=== PATIENT | male | born 1985 | race Caucasian/White ===

== ENCOUNTER 2017-06-25 15:05 | Emergency (ER) | payer OTHER ==
[~2017-06-25] VITALS: Ht 175.3 cm; Wt 113.6 kg
[~2017-06-25 15:05] MED LIST: NAPROSYN500 MG PO; NOHOMEMEDS; SUBOXONE 8 MG-1 EAC2 SL
[2017-06-25 15:31] VITALS: BP 145/101
== END 2017-06-25 15:20 | disposition left against medical advice (07) ==
LOC: EME 15:05
DX: F13.10 Sedative, hypnotic or anxiolytic abuse, uncomplicated (principal); F32.9 Major depressive disorder, single episode, unspecified; F17.200 Nicotine dependence, unspecified, uncomplicated